=== PATIENT | female | born 1945 | race Caucasian/White ===

== ENCOUNTER → 2019-05-30 | Outpatient (CLI) | payer MEDICARE ==
[~2019-05-30] MED LIST: AMITRIPTYLINE H75 MG PO; DILTIAZEM ER60 MG PO; LEVOTHYROXINE50 MCG PO; NEXIUM40 MG PO; PRINIVIL20 MG PO; REQUIP2 MG PO; SIMVASTATIN20 MG PO
--- NOTE | 2019-05-30 10:00 | Diagnostic Imaging Report ---
EXAMINATION: PA and lateral views of the chest. COMPARISON: None CLINICAL HISTORY: Shortness of breath DISCUSSION: Lung volumes are low with linear opacities in the lower lung zones compatible with subsegmental atelectasis. Calcified granuloma in the right lower lung. No airspace consolidation, pleural effusion, or pneumothorax. Tortuous thoracic aorta with atherosclerotic calcification. Otherwise normal cardiomediastinal contour when accounting for degree of inspiratory effort. No overt pulmonary edema. Age indeterminate moderate anterior compression deformity of an upper lumbar vertebral body, likely L1 or L2 with approximately 50% loss of anterior height. Otherwise no acute osseous abnormality. Right upper quadrant abdominal surgical clips likely related to prior cholecystectomy. IMPRESSION: Low lung volumes with subsegmental atelectasis in the lower lung zones. Otherwise no acute cardiopulmonary abnormality. Age indeterminate moderate anterior compression deformity, probably of L1 or L2. Point tenderness over this region of the spine would suggest relative acuity. Signed by: Dr. Dayton Evans M.D. on 05/30/2019 9:57 AM
== END ==
LOC: RAD 09:13
PROVIDERS: ATTEND Internal Medicine
DX: R06.02 Shortness of breath (principal)
CPT/HCPCS: 71046

== ENCOUNTER 2021-03-28 10:43 | Inpatient (IN) | payer MEDICARE ==
[~2021-03-28] VITALS: Ht 170.2 cm; Wt 91.6 kg
[2021-03-28 12:24] LABS: BASOPHILS % 0.7 % (0.0-1.0); EOSINOPHILS # (AUTO) 0.1 (0.0-0.4); EOSINOPHILS % 1.4 % (0.0-6.0); HEMATOCRIT 43.7 % (34.2-44.1); HEMOGLOBIN 13.5 g/dL (12.0-16.0); LYMPHOCYTES # (AUTO) 0.8 (1.0-3.2); LYMPHOCYTES % 13.3 % (18.0-39.1); MEAN CORPUSCULAR HEMOGLOBIN 30.5 pg (28-32); MEAN CORPUSCULAR HGB CONC 30.9 g/dL (31-35); MEAN CORPUSCULAR VOLUME 98.9 fL (81-99); MONOCYTES # (AUTO) 0.6 (0.2-0.8); MONOCYTES % 10.4 % (4.4-11.3); NEUTROPHILS # (AUTO) 4.2 (2.1-6.9); NEUTROPHILS % 73.8 % (38.7-80.0); PLATELET COUNT 199 x10e3/uL (140-360); RED BLOOD COUNT 4.42 x10e6/uL (3.6-5.1); RED CELL DISTRIBUTION WIDTH 13.8 % (11.7-14.4)
[2021-03-28] MEDS ORDERED: CEFTRIAXONE 1 GM VIAL IV ONE (12:45)
[2021-03-28] MEDS ORDERED: CEFTRIAXONE 1 GM in SODIUM CHLORIDE 0.9% 50ML 50 ML IV ONE (12:45)
[2021-03-28 12:54] LABS: ALBUMIN 3.9 g/dL (3.5-5.0); ALBUMIN/GLOBULIN RATIO 1.3 (0.8-2.0); ANION GAP 11.4 mmol/L (8-16); CREATININE, SERUM 0.62 mg/dL (0.57-1.11); POTASSIUM 4.4 mmol/L (3.5-5.1)
[2021-03-28 13:00] LABS: CREATINE KINASE MB 1.3 ng/mL (0-5.0)
[2021-03-28] MEDS ORDERED: SODIUM CHLORIDE 0.9% 50ML 50 ML ONE (13:22)
[2021-03-28] MEDS ORDERED: IOPAMIDOL 370 MG/ML 200 ML INFUS..BTL INJ ONE (13:22)
[2021-03-28] MEDS ORDERED: SODIUM CHLORIDE 0.9% 100 ML ONE (13:40)
[2021-03-28] MEDS: ALBUTEROL SULFATE HFA 8GM INHALATION AEROSOL INH PRN (14:09)
[2021-03-28] MEDS ORDERED: FUROSEMIDE INJ 10 MG/ML 4 ML VIAL IV ONE (14:30)
[2021-03-28] MEDS ORDERED: NITROGLYCERIN 2% OINT 1 GM PKT TOP ONE (14:45)
[2021-03-28] MEDS ORDERED: ONDANSETRON HCL INJ 2MG/ML 2ML 2 MG/ML VIAL IV PRN (16:00)
[2021-03-28] MEDS: NITROGLYCERIN 2% OINT 1 GM PKT TOP SCH (18:00)
[2021-03-28 20:00] VITALS: BP_SYST 122; BP_SYST 148; BP_DIAS 63; BP_DIAS 67
[2021-03-28 20:06] LABS: CREATINE KINASE 36 IU/L (29-168)
[2021-03-28] MEDS ORDERED: TIZANIDINE HCL2 MG PO (20:38)
[2021-03-28] MEDS ORDERED: ATIVAN0.5 MG PO (20:38)
[2021-03-28] MEDS ORDERED: ULTRAM50 MG PO (20:38)
[2021-03-28] MEDS ORDERED: ROZEREM8 MG PO (20:38)
[2021-03-28] MEDS ORDERED: ACETAMINOPHEN 325 MG TAB PO PRN (21:00)
[2021-03-28 21:18] VITALS: BP 122/67
[2021-03-28] MEDS: SIMVASTATIN 20 MG TAB PO SCH (22:48)
[2021-03-28] MEDS: LORAZEPAM 0.5 MG TAB PO PRN (22:49)
[2021-03-28 23:10] LABS: CLARITY,URINE SL CLOUDY (CLEAR); COLOR,URINE YELLOW (YELLOW); KETONES,URINE NEGATIVE (NEGATIVE); LEUKOCYTE ESTERASE ,URINE MODERATE (NEGATIVE); NITRITE,URINE NEGATIVE (NEGATIVE); PROTEIN,URINE DIPSTICK NEGATIVE (NEGATIVE); URINE UROBILINOGEN 0.2 mg/dL (0.2 - 1)
[2021-03-28 23:16] LABS: BACTERIA,URINE FEW /HPF; EPITHELIAL CELLS,URINE MANY /LPF; RBC,URINE 0-5 /HPF (0-5)
[2021-03-29] VITALS (7 sets, daily range): BP systolic 117–129; BP diastolic 40–78
[2021-03-29] MEDS: TRAMADOL HCL 50 MG TAB PO PRN ×3 (00:10→21:28)
[2021-03-29] MEDS: NITROGLYCERIN 2% OINT 1 GM PKT TOP SCH ×4 (00:10→18:28)
[2021-03-29] MEDS ORDERED: FUROSEMIDE INJ 10 MG/ML 4 ML VIAL IV ONE (05:00)
[2021-03-29 06:10] LABS: BASOPHILS # (AUTO) 0.1 (0.0-0.1); EOSINOPHILS # (AUTO) 0.2 (0.0-0.4); EOSINOPHILS % 2.9 % (0.0-6.0); HEMOGLOBIN 11.8 g/dL (12.0-16.0); LYMPHOCYTES # (AUTO) 1.3 (1.0-3.2); LYMPHOCYTES % 21.5 % (18.0-39.1); MEAN CORPUSCULAR HEMOGLOBIN 30.5 pg (28-32); MEAN CORPUSCULAR HGB CONC 31.1 g/dL (31-35); MEAN CORPUSCULAR VOLUME 98.2 fL (81-99); MONOCYTES # (AUTO) 0.9 (0.2-0.8); MONOCYTES % 14.6 % (4.4-11.3); NEUTROPHILS # (AUTO) 3.6 (2.1-6.9); NEUTROPHILS % 59.7 % (38.7-80.0); PLATELET COUNT 170 x10e3/uL (140-360); RED BLOOD COUNT 3.87 x10e6/uL (3.6-5.1); RED CELL DISTRIBUTION WIDTH 13.7 % (11.7-14.4)
[2021-03-29 06:27] LABS: ALBUMIN 3.5 g/dL (3.5-5.0); ALBUMIN/GLOBULIN RATIO 1.4 (0.8-2.0); ANION GAP 13.6 mmol/L (8-16); CALCIUM 8.1 mg/dL (8.4-10.2); CHOL/HDL RATIO 2.2 (3.0-3.6); CREATININE, SERUM 0.66 mg/dL (0.57-1.11); POTASSIUM 3.6 mmol/L (3.5-5.1)
[2021-03-29 06:42] LABS: CREATINE KINASE MB 1.5 ng/mL (0-5.0)
[2021-03-29] MEDS: PANTOPRAZOLE SOD 40 MG TABEC PO SCH (08:38)
[2021-03-29] MEDS: CEFTRIAXONE 1 GM in SODIUM CHLORIDE 0.9% 50ML 50 ML IV SCH (08:40)
[2021-03-29] MEDS: LEVOTHYROXINE SODIUM 50 MCG TAB PO SCH (08:40)
[2021-03-29] MEDS: ASPIRIN 81 MG ENTERIC COATED PO SCH (08:40)
[2021-03-29] MEDS: FUROSEMIDE INJ 10 MG/ML 2 ML VIAL IV SCH (08:40)
[2021-03-29] MEDS: LISINOPRIL 20 MG TAB PO SCH (08:40)
[2021-03-29] MEDS: ROPINIROLE HCL 2 MG TAB PO SCH ×2 (08:41→17:12)
[2021-03-29] MEDS: TIZANIDINE HCL 4 MG TAB PO SCH (08:43)
[2021-03-29] MEDS ORDERED: SODIUM CHLORIDE 0.9% 250ML 250 ML ONE (08:57)
[2021-03-29] MEDS: LORAZEPAM 0.5 MG TAB PO PRN ×2 (17:12→22:32)
[2021-03-29] MEDS: RAMELTEON 8 MG PO SCH (21:00)
[2021-03-29] MEDS ORDERED: AMITRIPTYLINE HCL 25 MG TAB PO SCH (21:00)
[2021-03-29] MEDS: SIMVASTATIN 20 MG TAB PO SCH (21:20)
[2021-03-29] MEDS: AMITRIPTYLINE HCL 25 MG TAB PO SCH (21:30)
[2021-03-29] MEDS: ALBUTEROL SULFATE HFA 8GM INHALATION AEROSOL INH PRN (22:10)
[2021-03-30] VITALS (8 sets, daily range): BP systolic 116–150; BP diastolic 53–85
[2021-03-30] MEDS: NITROGLYCERIN 2% OINT 1 GM PKT TOP SCH ×4 (00:54→18:00)
[2021-03-30] MEDS: LEVOTHYROXINE SODIUM 50 MCG TAB PO SCH (08:00)
[2021-03-30] MEDS: PANTOPRAZOLE SOD 40 MG TABEC PO SCH (08:00)
[2021-03-30] MEDS: CEFTRIAXONE 1 GM in SODIUM CHLORIDE 0.9% 50ML 50 ML IV SCH (09:19)
[2021-03-30] MEDS: LISINOPRIL 20 MG TAB PO SCH (09:19)
[2021-03-30] MEDS: FUROSEMIDE INJ 10 MG/ML 2 ML VIAL IV SCH (09:19)
[2021-03-30] MEDS: ASPIRIN 81 MG ENTERIC COATED PO SCH (09:19)
[2021-03-30] MEDS: ROPINIROLE HCL 2 MG TAB PO SCH ×2 (09:19→17:21)
[2021-03-30] MEDS: TIZANIDINE HCL 4 MG TAB PO SCH (09:20)
[2021-03-30] MEDS: SIMVASTATIN 20 MG TAB PO SCH (20:29)
[2021-03-30] MEDS: FUROSEMIDE INJ 10 MG/ML 4 ML VIAL IV SCH (20:29)
[2021-03-30] MEDS: RAMELTEON 8 MG PO SCH (20:29)
[2021-03-30] MEDS: AMITRIPTYLINE HCL 25 MG TAB PO SCH (20:29)
[2021-03-30] MEDS: LORAZEPAM 0.5 MG TAB PO PRN (20:34)
[2021-03-31] VITALS: BP 158/69
[2021-03-31] MEDS: NITROGLYCERIN 2% OINT 1 GM PKT TOP SCH ×4 (01:22→18:00)
[2021-03-31 04:00] VITALS: BP 118/57
[2021-03-31] MEDS: FUROSEMIDE INJ 10 MG/ML 4 ML VIAL IV SCH ×3 (04:48→22:12)
[2021-03-31] MEDS: PANTOPRAZOLE SOD 40 MG TABEC PO SCH (07:30)
[2021-03-31] MEDS: LEVOTHYROXINE SODIUM 50 MCG TAB PO SCH (07:30)
[2021-03-31 07:44] VITALS: BP 144/67
[2021-03-31] MEDS ORDERED: METOPROLOL SUCCINATE 25 MG TAB XL PO SCH (09:00)
[2021-03-31] MEDS: ASPIRIN 81 MG ENTERIC COATED PO SCH (09:06)
[2021-03-31] MEDS: TIZANIDINE HCL 4 MG TAB PO SCH (09:06)
[2021-03-31] MEDS: LISINOPRIL 20 MG TAB PO SCH (09:06)
[2021-03-31] MEDS: ROPINIROLE HCL 2 MG TAB PO SCH ×2 (09:06→17:10)
[2021-03-31 11:15] VITALS: BP 130/65
[2021-03-31 15:52] VITALS: BP 150/57
[2021-03-31] MEDS: SIMVASTATIN 20 MG TAB PO SCH (19:44)
[2021-03-31] MEDS: LORAZEPAM 0.5 MG TAB PO PRN (19:44)
[2021-03-31] MEDS: AMITRIPTYLINE HCL 25 MG TAB PO SCH (19:44)
[2021-03-31] MEDS: RAMELTEON 8 MG PO SCH (19:48)
[2021-03-31 20:00] VITALS: BP 142/82
[2021-04-01] VITALS (8 sets, daily range): BP systolic 112–154; BP diastolic 48–99
[2021-04-01] MEDS: LORAZEPAM 0.5 MG TAB PO PRN ×2 (03:03→16:30)
[2021-04-01] MEDS: FUROSEMIDE INJ 10 MG/ML 4 ML VIAL IV SCH ×3 (04:00→20:26)
[2021-04-01] MEDS ORDERED: DIAZEPAM INJ 5 MG/ML 2 ML IV PRN (05:00)
[2021-04-01] MEDS ORDERED: DIAZEPAM INJ 5 MG/ML 2 ML IV ONE (05:00)
[2021-04-01 05:59] LABS: HEMATOCRIT 40.7 % (34.2-44.1); HEMOGLOBIN 12.9 g/dL (12.0-16.0); MEAN CORPUSCULAR HEMOGLOBIN 31.1 pg (28-32); MEAN CORPUSCULAR HGB CONC 31.7 g/dL (31-35); MEAN CORPUSCULAR VOLUME 98.1 fL (81-99); PLATELET COUNT 184 x10e3/uL (140-360); RED BLOOD COUNT 4.15 x10e6/uL (3.6-5.1); RED CELL DISTRIBUTION WIDTH 13.1 % (11.7-14.4)
[2021-04-01] MEDS: NITROGLYCERIN 2% OINT 1 GM PKT TOP SCH ×5 (06:00→23:51)
[2021-04-01 06:53] LABS: ANION GAP 16.9 mmol/L (8-16); CALCIUM 8.8 mg/dL (8.4-10.2); CREATININE, SERUM 0.63 mg/dL (0.57-1.11); POTASSIUM 3.9 mmol/L (3.5-5.1)
[2021-04-01] MEDS: LEVOTHYROXINE SODIUM 50 MCG TAB PO SCH (07:30)
[2021-04-01] MEDS: PANTOPRAZOLE SOD 40 MG TABEC PO SCH (07:30)
[2021-04-01 08:11] LABS: EOSINOPHILS % (MANUAL) 1 % (0-7); LYMPHOCYTES % (MANUAL) 17 % (19-48); MONOCYTES % (MANUAL) 12 % (3.4-9.0); NEUTROPHILS % (MANUAL) 70 % (40-74); PLATELET ESTIMATE ADEQUATE
[2021-04-01 08:12] LABS: PLATELET MORPHOLOGY COMMENT FEW GIANT; RBC MORPHOLOGY COMMENT NORMAL
[2021-04-01] MEDS: ASPIRIN 81 MG ENTERIC COATED PO SCH (09:00)
[2021-04-01] MEDS: SPIRONOLACTONE 25 MG TAB PO SCH (09:00)
[2021-04-01] MEDS: METOPROLOL SUCCINATE 50 MG TAB XL PO SCH (09:00)
[2021-04-01] MEDS: TIZANIDINE HCL 4 MG TAB PO SCH (09:00)
[2021-04-01] MEDS: ROPINIROLE HCL 2 MG TAB PO SCH (09:00)
[2021-04-01] MEDS: LISINOPRIL 20 MG TAB PO SCH (09:00)
[2021-04-01] MEDS: RAMELTEON 8 MG PO SCH (20:26)
[2021-04-01] MEDS: QUETIAPINE FUMARATE 25 MG TAB PO SCH (20:26)
[2021-04-01] MEDS: SIMVASTATIN 20 MG TAB PO SCH (20:26)
[2021-04-02] VITALS (9 sets, daily range): BP systolic 115–130; BP diastolic 50–100
[2021-04-02] MEDS: FUROSEMIDE INJ 10 MG/ML 4 ML VIAL IV SCH ×3 (03:59→20:24)
[2021-04-02] MEDS: NITROGLYCERIN 2% OINT 1 GM PKT TOP SCH (06:26)
[2021-04-02] MEDS: LEVOTHYROXINE SODIUM 50 MCG TAB PO SCH (07:30)
[2021-04-02] MEDS: PANTOPRAZOLE SOD 40 MG TABEC PO SCH (07:30)
[2021-04-02] MEDS: LORAZEPAM 0.5 MG TAB PO PRN (08:30)
[2021-04-02] MEDS: METOPROLOL SUCCINATE 50 MG TAB XL PO SCH (09:00)
[2021-04-02] MEDS: ASPIRIN 81 MG ENTERIC COATED PO SCH (09:00)
[2021-04-02] MEDS: SPIRONOLACTONE 25 MG TAB PO SCH (09:00)
[2021-04-02] MEDS: LISINOPRIL 20 MG TAB PO SCH (09:00)
[2021-04-02] MEDS: ROPINIROLE HCL 2 MG TAB PO SCH ×2 (10:45→20:25)
[2021-04-02 11:31] LABS: ANION GAP 14.6 mmol/L (8-16); CALCIUM 8.1 mg/dL (8.4-10.2); CREATININE, SERUM 0.66 mg/dL (0.57-1.11); POTASSIUM 3.6 mmol/L (3.5-5.1)
[2021-04-02] MEDS: CEFTRIAXONE 1 GM in SODIUM CHLORIDE 0.9% 50ML 50 ML IV SCH ×2 (11:48→20:24)
[2021-04-02] MEDS: RAMELTEON 8 MG PO SCH (20:25)
[2021-04-02] MEDS: SIMVASTATIN 20 MG TAB PO SCH (20:25)
[2021-04-02] MEDS: QUETIAPINE FUMARATE 25 MG TAB PO SCH (20:25)
[2021-04-02] MEDS ORDERED: ZIPRASIDONE 20 MG VIAL IM PRN (22:30)
[2021-04-03] MEDS: TRAMADOL HCL 50 MG TAB PO PRN (00:40)
[2021-04-03] MEDS: FUROSEMIDE INJ 10 MG/ML 4 ML VIAL IV SCH (04:35)
[2021-04-03 04:45] VITALS: BP 131/94
[2021-04-03 07:28] LABS: BASOPHILS # (AUTO) 0.1 (0.0-0.1); BASOPHILS % 1.1 % (0.0-1.0); EOSINOPHILS # (AUTO) 0.2 (0.0-0.4); EOSINOPHILS % 2.7 % (0.0-6.0); HEMATOCRIT 38.2 % (34.2-44.1); HEMOGLOBIN 12.1 g/dL (12.0-16.0); LYMPHOCYTES # (AUTO) 1.1 (1.0-3.2); LYMPHOCYTES % 18.8 % (18.0-39.1); MEAN CORPUSCULAR HEMOGLOBIN 30.8 pg (28-32); MEAN CORPUSCULAR HGB CONC 31.7 g/dL (31-35); MEAN CORPUSCULAR VOLUME 97.2 fL (81-99); MONOCYTES # (AUTO) 1.1 (0.2-0.8); MONOCYTES % 19.7 % (4.4-11.3); NEUTROPHILS # (AUTO) 3.2 (2.1-6.9); NEUTROPHILS % 57.5 % (38.7-80.0); PLATELET COUNT 151 x10e3/uL (140-360); RED BLOOD COUNT 3.93 x10e6/uL (3.6-5.1); RED CELL DISTRIBUTION WIDTH 12.8 % (11.7-14.4)
[2021-04-03] MEDS: PANTOPRAZOLE SOD 40 MG TABEC PO SCH (07:30)
[2021-04-03] MEDS: LEVOTHYROXINE SODIUM 50 MCG TAB PO SCH (07:30)
[2021-04-03 07:42] LABS: ALBUMIN 3.6 g/dL (3.5-5.0); ALBUMIN/GLOBULIN RATIO 1.4 (0.8-2.0); ANION GAP 13.7 mmol/L (8-16); CALCIUM 8.7 mg/dL (8.4-10.2); CREATININE, SERUM 0.62 mg/dL (0.57-1.11); POTASSIUM 3.7 mmol/L (3.5-5.1)
[2021-04-03 07:57] VITALS: BP 147/59
[2021-04-03] MEDS: LISINOPRIL 20 MG TAB PO SCH (09:00)
[2021-04-03] MEDS: CEFTRIAXONE 1 GM in SODIUM CHLORIDE 0.9% 50ML 50 ML IV SCH (09:00)
[2021-04-03] MEDS: SPIRONOLACTONE 25 MG TAB PO SCH (09:00)
[2021-04-03] MEDS: ASPIRIN 81 MG ENTERIC COATED PO SCH (09:00)
[2021-04-03] MEDS: METOPROLOL SUCCINATE 50 MG TAB XL PO SCH (09:00)
[2021-04-03] MEDS: ROPINIROLE HCL 2 MG TAB PO SCH (09:00)
[2021-04-03 09:20] VITALS: BP 147/59
[2021-04-03] MEDS ORDERED: SPIRONOLACTONE25 MG PO (10:30)
[2021-04-03] MEDS ORDERED: FUROSEMIDE40 MG PO (10:30)
[2021-04-03] MEDS ORDERED: ASPIRIN81 MG PO (10:31)
[2021-04-03] MEDS ORDERED: PROAIR HFA INH8.5 GM (10:31)
[2021-04-03] MEDS ORDERED: METOPROLOL SUCC50 MG PO (10:32)
[2021-04-03] MEDS ORDERED: NEBULIZER MACHINE (10:33)
[2021-04-03] MEDS ORDERED: DUONEBS (10:34)
[2021-04-03] MEDS ORDERED: CEFTIN PO (10:38)
== END 2021-04-03 11:10 | disposition home health service (06) | DRG 291 ==
LOC: ER 10:50 → ERHOLD 15:53 → MED/SURG 20:18
PROVIDERS: ADMIT Internal Medicine; ATTEND Internal Medicine
DX: I11.0 Hypertensive heart disease with heart failure (principal); G93.41 Metabolic encephalopathy; J15.6 Pneumonia due to other Gram-negative bacteria; J96.21 Acute and chronic respiratory failure with hypoxia; N39.0 Urinary tract infection, site not specified; I50.43 Acute on chronic combined systolic (congestive) and diastolic (congestive) heart failure; E78.5 Hyperlipidemia, unspecified; K21.9 Gastro-esophageal reflux disease without esophagitis; Z90.49 Acquired absence of other specified parts of digestive tract; Z88.5 Allergy status to narcotic agent; Z88.8 Allergy status to other drugs, medicaments and biological substances; E66.9 Obesity, unspecified; F41.9 Anxiety disorder, unspecified; G25.81 Restless legs syndrome; Z20.822 Contact with and (suspected) exposure to COVID-19; Z68.31 Body mass index [BMI] 31.0-31.9, adult; F32.9 Major depressive disorder, single episode, unspecified; R53.81 Other malaise; J42 Unspecified chronic bronchitis; T43.015A Adverse effect of tricyclic antidepressants, initial encounter; T42.4X5A Adverse effect of benzodiazepines, initial encounter; T42.8X5A Adverse effect of antiparkinsonism drugs and other central muscle-tone depressants, initial encounter; T42.6X5A Adverse effect of other antiepileptic and sedative-hypnotic drugs, initial encounter
CPT/HCPCS: 36415; 71045; 71260; 80048; 80053; 80061; 81001; 82550; 82553; 83605; 83735; 83880; 84443; 84484; 85007; 85025; 85027; 87040; 87086; 93005; 93306; 97139; 99251; 99284; J0456; J0696; J1940; J2405; J3360; J3486; J7050; Q9967; U0002

== ENCOUNTER → 2022-02-10 | Outpatient (CLI) | payer MEDICARE, OTHER ==
[~2022-02-10] MED LIST changes: +ASPIRIN81 MG PO; +ATIVAN0.5 MG PO; +CEFTIN PO; +DUONEBS; +FUROSEMIDE40 MG PO; +METOPROLOL SUCC50 MG PO; +NEBULIZER MACHINE; +PROAIR HFA INH8.5 GM; +ROZEREM8 MG PO; +SPIRONOLACTONE25 MG PO; +TIZANIDINE HCL2 MG PO; +ULTRAM50 MG PO
== END ==
LOC: RAD 12:53
PROVIDERS: ATTEND Internal Medicine
DX: R07.81 Pleurodynia (principal); W19.XXXA Unspecified fall, initial encounter
CPT/HCPCS: 71101